=== PATIENT | female | born 1945 | race African-American/Black ===

== ENCOUNTER 2017-07-11 14:31 | Observation (INO) | END 2017-07-12 15:40 | disposition home or self-care (01) ==

== ENCOUNTER 2018-09-12 10:11 | Emergency (ER) | payer MEDICAID ==
[~2018-09-12] VITALS: Ht 170.2 cm; Wt 86.1 kg
[~2018-09-12 10:11] MED LIST: AMLO5TAB4 PO; BACL10TA PO; HYDR-4011 PO; HYDR25TA6 PO; LOSA100T15 PO; METF500T24 PO
[2018-09-12 10:19] VITALS: BP 141/82; PULSE 54; RESP 14; Ht 170.2 cm; Wt 86.1 kg
[2018-09-12] MEDS ORDERED: LOSA100T15 PO (10:43)
--- NOTE | 2018-09-12 13:04 | ERD ---
ER Documentation Chief Complaint Chief Complaint PT presents to the ED with needs for Losartan med refill. HPI Patient is a 73-year-old female with hypertension and diabetes who presents with the need for a refill of her losartan. She has no complaints. She is visiting from [facility]. She needs daily 100 mg losartan. ROS All systems reviewed and are negative except as per history of present illness. Medications Home Meds Active Scripts Losartan Potassium* (Losartan Potassium*) 100 Mg Tablet, 100 MG PO DAILY, #90 TAB Prov:MELVIN ESPINOSA MD 09/12/18 Hydrocodone/Acetaminophen ([place] 5-325 Tablet) 1 Each Tablet, 1 EACH PO Q4 for PAIN, #30 TAB Prov:RADHA PIZANO 07/12/17 Reported Medications Losartan Potassium* (Losartan Potassium*) 100 Mg Tablet, 100 MG PO DAILY, TAB 07/11/17 Amlodipine Besylate* (Norvasc*) 5 Mg Tablet, 5 MG PO DAILY, TAB 07/11/17 Metformin Hcl* (Metformin Hcl*) 500 Mg Tablet, 500 MG PO WITH BREAKFAST, #30 TAB 07/11/17 Hydrochlorothiazide* (Hydrochlorothiazide*) 25 Mg Tab, 25 MG PO DAILY, #30 TAB 07/11/17 Baclofen* (Baclofen*) 10 Mg Tablet, 10 MG PO TID, TAB 07/11/17 Allergies Allergies: Coded Allergies: No Known Allergy (Unverified , 07/11/17) PMhx/Soc History of Surgery: No Anesthesia Reaction: No Hx Neurological Disorder: No Hx Respiratory Disorders: Yes (seasonal allergies:asthma) Hx Cardiac Disorders: Yes (htn) Hx Psychiatric Problems: No Hx Miscellaneous Medical Probl: Yes (early Parkinson's) Hx Alcohol Use: No Hx Substance Use: No Hx Tobacco Use: No (50 years ago) Smoking Status: Never smoker FmHx Family History: diabetes Physical Exam Vitals Vital Signs Date Temp Pulse Resp B/P (MAP) Pulse Ox O2 O2 Flow FiO2 Time Delivery Rate 09/12/18 97.9 54 14 141/82 99 10:19 (101) Physical Exam Const: No acute distress Head: Atraumatic Eyes: Normal Conjunctiva ENT: Normal External Ears, Nose and Mouth. Neck: Full range of motion. No meningismus. Resp: Clear to auscultation bilaterally Cardio: Regular rate and rhythm, no murmurs Abd: Soft, non tender, non distended. Normal bowel sounds Skin: No petechiae or rashes Back: No midline or flank tenderness Ext: No cyanosis, or edema Neur: Awake and alert Psych: Normal Mood and Affect Procedures/MDM Patient is a 73-year-old female who needs a medication refill of losartan. I will give her a prescription for the next 3 months that she is visiting from [facility]. She can return for any worsening symptoms. She is given a list of the local clinics in case she requires primary care follow-up while in the [facility]. She has no symptoms. Departure Diagnosis: Primary Impression: Encounter for medication refill Condition: Fair Patient Instructions: Hypertension, Established Referrals: COMMUNITY CLINICS YOU HAVE RECEIVED A MEDICAL SCREENING EXAM AND THE RESULTS INDICATE THAT YOU DO NOT HAVE A CONDITION THAT REQUIRES URGENT TREATMENT IN THE EMERGENCY DEPARTMENT. FURTHER EVALUATION AND TREATMENT OF YOUR CONDITION CAN WAIT UNTIL YOU ARE SEEN IN YOUR DOCTORS OFFICE WITHIN THE NEXT 1-2 DAYS. IT IS YOUR RESPONSIBILITY TO MAKE AN APPOINTMENT FOR FOLOW-UP CARE. IF YOU HAVE A PRIMARY DOCTOR --you should call your primary doctor and schedule an appointment IF YOU DO NOT HAVE A PRIMARY DOCTOR YOU CAN CALL OUR PHYSICIAN REFERRAL HOTLINE AT IF YOU CAN NOT AFFORD TO SEE A PHYSICIAN YOU CAN CHOSE FROM THE FOLLOWING [facility] [address] [facility] [facility] [place] [address] [facility] [facility] [address] [facility] [facility] [address] [facility] [facility] [address] [facility]. [facility]. [address] Additional Instructions: Call your primary care doctor TOMORROW for an appointment during the next 1 WEEK.Tell the field secretary that you were referred from this facility.See the doctor sooner or return here if your condition worsens before your appointment time. MELVIN ESPINOSA MD Sep 12, 2018 13:04
== END 2018-09-12 11:17 | disposition home or self-care (01) ==
LOC: FTE 10:11
DX: Z76.0 Encounter for issue of repeat prescription (principal); I10 Essential (primary) hypertension; G20 Parkinson's disease; J45.909 Unspecified asthma, uncomplicated; E11.9 Type 2 diabetes mellitus without complications; Z79.84 Long term (current) use of oral hypoglycemic drugs
CPT/HCPCS: 99281